=== PATIENT | female | born 1980 | race Caucasian/White ===

== ENCOUNTER 2017-01-23 13:07 | Emergency (ER) | payer OTHER ==
[2017-01-23 13:37] LABS: BASOPHIL 0.7 % (0-2); HCT 35.3 % (37.0-47.0); HGB 12.2 g/dl (12.5-16.0); LYMPHOCYTE 29.4 % (15-48); MCH 30.6 pg (25.0-31.0); MCHC 34.6 g/dL (32.0-36.0); MCV 88.5 fL (78.0-100.0); MONOCYTE 9.8 % (0-12); MPV 11.3 fL (6.0-9.5); NEUTROPHIL 59.1 % (41-80); PLT 155 K/uL (150-400); RBC 3.99 M/uL (4.20-5.40); RDW 13.3 % (11.5-14.0); WBC 5.9 K/uL (4.0-10.5)
[2017-01-23 13:41] LABS: INR 1.07 (0.9-1.2); PROTHROMBIN TIME 13.5 SECONDS (11.7-14.0)
[2017-01-23 13:43] LABS: D-DIMER 0.32 ug/mLFEU (0.00-0.41)
[2017-01-23 13:51] LABS: ALBUMIN 4.3 g/dL (3.5-5.0); BILIRUBIN - TOTAL 0.7 mg/dL (0.1-1.0); CREATININE 0.7 mg/dL (0.5-1.0); GLOBULIN (CALCULATION) 2.4 g/dL (2.2-4.2); POTASSIUM 3.9 mmol/L (3.5-5.1); TOTAL PROTEIN 6.7 g/dL (6.4-8.3)
[2017-01-23 13:52] LABS: PRO-BNP 66 pg/mL (0-125); TROPONIN T < 0.010 ng/mL
== END 2017-01-23 18:44 | disposition home or self-care (01) ==
LOC: FER 13:07
PROVIDERS: Emergency Medicine
DX: R07.89 Other chest pain (principal); Z87.891 Personal history of nicotine dependence
CPT/HCPCS: 36415; 71010; 80053; 83880; 84484; 85025; 85379; 85610; 93005